=== PATIENT | male | born 1960 | race Two or more races ===

== ENCOUNTER 2023-02-17 09:57 | Emergency (ER) | payer BC, SELFPAY ==
[2023-02-17] VITALS (27 sets, daily range): BP systolic 116–165; BP diastolic 76–105; PULSE 80–95; RESP 12–88; TEMP 36.8; O2SAT 91–99; BMI 30.7
--- NOTE | 2023-02-17 10:07 | ED_ITS ---
HPI - General Adult General Chief complaint: Shortness of Breath/Dyspnea Stated complaint: SYNCOPE Time Seen by Provider: 02/17/23 10:03 Source: patient Mode of arrival: walk-in History of Present Illness HPI narrative: Patient presents to emergency department complaining of dyspnea. Patient has a history of asthma. He was at Dr. Diaz's office and had an outpatient x-ray ordered. The patient went to get the x-ray he became dyspneic and lightheaded and came into the emergency department. states he has been having a nonproductive cough for one week. She tested her for cold with on Thursday and it was negative. The patient denies any fever, chills, or chest pain. He denies any lower extremity edema, or cramping. He has no previous history of thrombotic disease. Denies any sore throat or upper respiratory infection symptoms. He has been taking decongestants. He has used his inhaler at home a couple of times. This is glucose has been normal. Related Data Previous Rx's Medication Instructions Recorded albuterol sulfate 5 mg/mL(0.5 %) 2.5 mg (0.5 mL) inhalation TID 10 02/17/23 solution for nebulization days #15 mL benzonatate 200 mg capsule 200 mg PO TID PRN cough #20 caps 02/17/23 Allergies Allergy/AdvReac Type Severity Reaction Status Date / Time zpack AdvReac Intermediate Uncoded 02/17/23 10:04 Review of Systems ROS Status of ROS 10 or more systems reviewed and unremarkable except as noted in history and below [facility] Social History Smoking status: Current every day smoker Exam Narrative Exam Narrative: Nurses notes and vital signs reviewed and patient is not hypoxic. General: Nontoxic, Well-appearing and in no apparent distress. Skin: Warm, dry, no pallor noted. No Rash Head: Normocephalic, atraumatic. Neck: Supple, non-tender. Eye: Pupils are equal, round and EOMI. No scleral icterus. Ears, Nose, Mouth, and Throat: TM clear, no posterior oropharynx erythema or nasal mucosal hypertrophy, uvula is mid-line Oral mucosa is moist Cardiovascular: Regular Rate and Rhythm without murmur, gallop or rub. Respiratory: No accessory muscle use or respiratory distress. Lungs Bilateral diffuse expiratory wheezes. Chest Wall: no tenderness Back: No midline thoracic or lumbar vertebral tenderness. No CVA tenderness Musculoskeletal: normal ROM, no calf or popliteal tenderness, no lower extremity edema/swelling GI: Abdomen is soft, non-distended. Normal bowel sounds. No masses appreciated. No tenderness to palpation. No rebound, guarding, or rigidity noted. Neurological: A&O x4. No cranial nerve dysfunction observed. No truncal ataxia. Moves all extremities. Sensation intact. Psychiatric: Cooperative and interactive. Normal mood and affect. Constitutional Vital Signs, click to edit/add: Last Vital Signs Temp 98.2 F 02/17/23 10:00 Pulse 90 02/17/23 12:25 Resp 16 02/17/23 12:25 BP 145/88 H 02/17/23 10:15 Pulse Ox 92 L 02/17/23 12:25 O2 Del Method Room Air 02/17/23 12:25 Course Vital Signs Vital signs: Vital Signs Temperature 98.2 F 02/17/23 10:00 Pulse Rate 87 02/17/23 10:00 Respiratory Rate 88 H 02/17/23 10:00 Blood Pressure 165/105 H 02/17/23 10:00 Pulse Oximetry 95 02/17/23 10:00 Temperature 98.2 F 02/17/23 10:00 Pulse Rate 90 02/17/23 12:25 Respiratory Rate 16 02/17/23 12:25 Blood Pressure 145/88 H 02/17/23 10:15 Pulse Oximetry 92 L 02/17/23 12:25 Oxygen Delivery Method Room Air 02/17/23 12:25 Medical Decision Making MDM Narrative Medical decision making narrative: Patient had an IV established. His oxygen saturation is 97 percent on room air. Solu-Medrol 125 mg IV and duoneb was ordered. Symptoms have improved- is still slightly wheezing. Patient was given an albuterol nebulized treatment, and Tessalon Perles after he had a cough spell. Patient states he felt much better. His oxygen saturation is 93 percent on room air. He states he is feeling depressed he's had in a while. He respiratory panel was negative. Chest x-rays unremarkable. Patient was just discharged from Dr. Archuleta's office. He has prescriptions in the pharmacy for prednisone, an antibiotic, albuterol and codeine antitussive. At this time the patient is without objective evidence of an acute process requiring hospitalization or inpatient management. The patient has remained hemodynamically stable. No additional indication for emergent studies at this time. I answered all questions. Discussed discharge instructions including standard anticipatory guidance and what should prompt a return to the emergency department, including if they get worse are not getting better or develops any new or concerning symptoms. I've given them specific time frame in which to follow-up, and who to follow-up with. The patient demonstrates understanding. Patient is nontoxic and stable for discharge with outpatient follow-up. This note was created with the assistance of a speech recognition program. Although the intention is to generate documents that actually reflects the content of the visit, no guarantees can be provided that every mistake has been identified and corrected by editing. Lab Data Lab results reviewed: Yes I reviewed the patient's lab results Labs: Lab Results 02/17/23 02/17/23 Range/Units 10:30 12:00 WBC 10.7 (4.0-11.0) 10^3/uL RBC 5.64 (4.70-6.10) 10^6/uL Hgb 16.2 (14.0-18.0) g/dL Hct 48.3 (42.0-54.0) % MCV 85.6 (80.0-94.0) fL MCH 28.7 (25.9-34.0) pg MCHC 33.5 (29.9-35.2) g/dL RDW 12.7 (11.0-15.0) % Plt Count 218 (150-450) 10^3/uL MPV 10.6 (9.5-13.5) fL Neut % (Auto) 53.8 (43.0-75.0) % Lymph % (Auto) 24.6 (20.5-60.0) % [place] % (Auto) 6.9 (1.7-12.0) % Eos % (Auto) 13.6 H (0.9-7.0) % Baso % (Auto) 0.8 (0.2-2.0) % Neut # (Auto) 5.7 (1.4-6.5) 10^3/uL Lymph # (Auto) 2.6 (1.2-3.8) 10^3/uL [place] # (Auto) 0.7 (0.3-0.8) 10^3/uL Eos # (Auto) 1.5 H (0.0-0.7) 10^3/uL Baso # (Auto) 0.1 (0.0-0.1) 10^3/uL Abs Immat Gran (auto) 0.03 (0.00-0.03) 10^3/uL Imm/Tot Granulo (auto) 0.3 (0.0-0.5) % PT 10.3 (9.0-11.6) sec INR 0.97 APTT 33.3 (22.3-36.2) sec D-Dimer 0.26 (<=0.59) mg/L FEU Sodium 138 (136-145) mmol/L Potassium 4.4 (3.5-5.1) mmol/L Chloride 102 (98-107) mmol/L Carbon Dioxide 25.0 (21.0-32.0) mmol/L Anion Gap 15.4 BUN 20.0 H (7.0-18.0) mg/dL Creatinine 0.97 (0.70-1.30) mg/dL Est GFR ( Amer) >60 (>=60) Est GFR (Non-Af Amer) >60 (>=60) BUN/Creatinine Ratio 20.6 Glucose 155 H (74-106) mg/dL Calcium 9.7 (8.5-10.1) mg/dL Total Bilirubin 0.6 (0.2-1.0) mg/dL AST 18 (15-37) U/L ALT 28 (16-63) U/L Alkaline Phosphatase 85 (46-116) U/L Troponin I High Sens 6.5 (4.0-76.1) pg/mL NT-Pro-B Natriuret Pep <5.0 (<=900.0) pg/mL Total Protein 8.4 H (6.4-8.2) g/dL Albumin 4.2 (3.4-5.0) g/dL Globulin 4.2 g/dL Albumin/Globulin Ratio 1.0 Adenovirus (PCR) Not detected (NOT DETECTE) C. pneumoniae DNA (PCR) Not detected (NOT DETECTE) Coronavirus Type OC43 Not detected (NOT DETECTE) Coronavirus Type HKU1 Not detected (NOT DETECTE) Coronavirus Type 229E Not detected (NOT DETECTE) Coronavirus Type NL63 Not detected (NOT DETECTE) Human Metapneumovir PCR Not detected (NOT DETECTE) M. pneumoniae (PCR) Not detected (NOT DETECTE) Parainfluenza PCR Not detected (NOT DETECTE) Parainfluenza 2 (PCR) Not detected (NOT DETECTE) Parainfluenza 3 (PCR) Not detected (NOT DETECTE) Parainfluenza 4 (PCR) Not detected (NOT DETECTE) RSV (RT-PCR) Not detected (NOT DETECTE) Entero/Rhino (PCR) Not detected (NOT DETECTE) SARS-CoV-2 (PCR) Not detected (NOT DETECTE) Bordetella pertussis (PCR) Not detected (NOT DETECTE) B parapertussis DNA PCR Not detected (NOT DETECTE) Influenza Type A (PCR) Not detected (NOT DETECTE) Influenza Type B (PCR) Not detected (NOT DETECTE) ECG Data Attestation: I personally reviewed and interpreted this ECG as follows: Interpretation: Sinus rhythm of 84 beats per minutes. Normal axis, there are no acute ischemic changes. Discharge Plan Discharge Chief Complaint: Shortness of Breath/Dyspnea Clinical Impression: Asthma with acute exacerbation Patient Disposition: Home, Self-Care Time of Disposition Decision: 13:16 Condition: Good Mode of Transportation: Private Vehicle Prescriptions / Home Meds: New albuterol sulfate 5 mg/mL solution for nebulization 2.5 mg inhalation TID 10 Days Qty: 15 0RF benzonatate 200 mg capsule 200 mg PO TID PRN (Reason: cough) Qty: 20 0RF Instructions: Asthma (ED) Stand Alone Forms: Portal Instructions Referrals: Jason Archuleta DO [Physician] - 1 week PAPA NELSON [Primary Care Provider] - 1 week
--- NOTE | 2023-02-17 10:14 | XR_ITS ---
The [address] [address] Patient Name: NOHEMI FRANCO MRN: [id number] date: 1960 Sex: M Assigned Patient Location: ED.MAIN Current Patient Location: ER Accession/Order Number: [id number] Exam Date: 02/17/2023 11:12 Report Date: 02/17/2023 11:31 At the request of: STEFANIE ROBERSON Procedure: XR chest 1V EXAM: XR chest 1V HISTORY: Dyspnea. COMPARISON: None. TECHNIQUE: AP erect portable chest radiograph performed. FINDINGS: The trachea is normal. The cardiomediastinal silhouette and hilar shadows are normal. The lung osei are clear. There is no pneumothorax. There is no osseous abnormality. XR/XR chest 1V IMPRESSION: Unremarkable AP erect portable chest radiograph. Electronically authenticated by: AGNES CAMARENA Date: 02/17/2023 11:31
--- NOTE | 2023-02-17 10:14 | ECG_ITS ---
The [facility] Test Date: 2023-02-17 Pat Name: NOHEMI FRANCO Department: Room: - Gender: Male 411 Directory Assistance Operator: : 1960 Requested By: [id number] Order Number: [id number] Reading MD: AURORA REBOLLEDO Measurements Intervals [place] Rate: 84 P: 60 [place]: 200 QRS: 71 QRSD: 84 T: 66 QT: 354 QTc: 395 Interpretive Statements 1100 Sinus rhythm 9110 normal ECG No previous ECG available for comparison Electronically Signed On 02-18-2023 6:59:21 EDT by AURORA REBOLLEDO
[2023-02-17] MEDS: IPRATROPIUM/ALBUTEROL SULFATE 3 ML AMPUL.NEB IH (10:34)
[2023-02-17] MEDS: METHYLPREDNISOLONE SOD SUCC PF 125 MG/2 ML VIAL IVP (10:41)
[2023-02-17 10:45] LABS: Basophils Absolute Auto 0.1 10^3/uL (0.0-0.1); Basophils Percent Auto 0.8 % (0.2-2.0); Eosinophils Absolute Auto 1.5 10^3/uL (0.0-0.7); Eosinophils Percent Auto 13.6 % (0.9-7.0); Hematocrit 48.3 % (42.0-54.0); Hemoglobin 16.2 g/dL (14.0-18.0); Immature Granulocytes Abs Auto 0.03 10^3/uL (0.00-0.03); Immature Granulocytes Pct Auto 0.3 % (0.0-0.5); Lymphocytes Absolute Auto 2.6 10^3/uL (1.2-3.8); Lymphocytes Percent Auto 24.6 % (20.5-60.0); Mean Corpuscular HGB Conc 33.5 g/dL (29.9-35.2); Mean Corpuscular Hemoglobin 28.7 pg (25.9-34.0); Mean Corpuscular Volume 85.6 fL (80.0-94.0); Mean Platelet Volume 10.6 fL (9.5-13.5); Monocytes Absolute Auto 0.7 10^3/uL (0.3-0.8); Monocytes Percent Auto 6.9 % (1.7-12.0); Neutrophils Absolute Auto 5.7 10^3/uL (1.4-6.5); Neutrophils Percent Auto 53.8 % (43.0-75.0); Platelet Count 218 10^3/uL (150-450); Red Blood Count 5.64 10^6/uL (4.70-6.10); Red Cell Distribution Width 12.7 % (11.0-15.0); White Blood Count 10.7 10^3/uL (4.0-11.0)
[2023-02-17] MEDS: MAGNESIUM SULFATE IN WATER 50 ML IV (10:46)
[2023-02-17 11:00] LABS: D Dimer 0.26 mg/L FEU (<=0.59); INR 0.97; Partial Thromboplastin Time 33.3 sec (22.3-36.2); Prothrombin Time 10.3 sec (9.0-11.6)
[2023-02-17 11:10] LABS: Alanine Aminotransferase 28 U/L (16-63); Albumin Level 4.2 g/dL (3.4-5.0); Alkaline Phosphatase 85 U/L (46-116); Anion Gap 15.4; Aspartate Amino Transferase 18 U/L (15-37); BUN Creatinine Ratio 20.6; Bilirubin Total 0.6 mg/dL (0.2-1.0); Calcium 9.7 mg/dL (8.5-10.1); Chloride 102 mmol/L (98-107); Estimated GFR (African America >60 (>=60); Estimated GFR (Non-African Ame >60 (>=60); Globulin 4.2 g/dL; Glucose 155 mg/dL (74-106); NT Pro B Type Natriuretic Pept <5.0 pg/mL (<=900.0); Potassium 4.4 mmol/L (3.5-5.1); Sodium 138 mmol/L (136-145); Total Protein 8.4 g/dL (6.4-8.2); Troponin I High Sensitivity 6.5 pg/mL (4.0-76.1)
[2023-02-17 12:10] LABS: Adenovirus NOT DETECTED (NOT DETECTE); Bordetella parapertussis NOT DETECTED (NOT DETECTE); Coronavirus 229E NOT DETECTED (NOT DETECTE); Coronavirus HKU1 NOT DETECTED (NOT DETECTE); Coronavirus NL63 NOT DETECTED (NOT DETECTE); Coronavirus OC43 NOT DETECTED (NOT DETECTE); Human Metapneumovirus NOT DETECTED (NOT DETECTE); Human Rhinovirus/Enterovirus NOT DETECTED (NOT DETECTE); Influenza A NOT DETECTED (NOT DETECTE); Influenza B NOT DETECTED (NOT DETECTE); Mycoplasma pneumoniae NOT DETECTED (NOT DETECTE); Parainfluenza Virus 1 NOT DETECTED (NOT DETECTE); Parainfluenza Virus 2 NOT DETECTED (NOT DETECTE); Parainfluenza Virus 3 NOT DETECTED (NOT DETECTE); Parainfluenza Virus 4 NOT DETECTED (NOT DETECTE); Respiratory Syncytial Virus NOT DETECTED (NOT DETECTE); SARS-CoV-2 NOT DETECTED (NOT DETECTE)
[2023-02-17] MEDS: BENZONATATE 100 MG CAPSULE 200 MG PO (12:18)
[2023-02-17] MEDS: ALBUTEROL SULFATE 2.5 MG/3 ML VIAL NEB IH (12:25)
== END 2023-02-17 14:02 | disposition home or self-care (01) ==
PROVIDERS: Emergency Provider Emergency Medicine; PCP Nurse Practitioner
DX: J45.901 Unspecified asthma with (acute) exacerbation (principal); F17.210 Nicotine dependence, cigarettes, uncomplicated; Z79.899 Other long term (current) drug therapy; Z20.822 Contact with and (suspected) exposure to COVID-19
CPT/HCPCS: 0202U; 36415; 71045; 80053; 83880; 84484; 85025; 85378; 85610; 85730; 87040; 93005; 94640; 96374; 96375; 99285; J2930

== ENCOUNTER 2023-07-22 10:08 | Outpatient (OUT) | payer OTHER, SELFPAY ==
[2023-07-22] MEDS: ALBUTEROL SULFATE 2.5 MG/3 ML VIAL NEB IH (09:38)
--- NOTE | 2023-07-22 09:40 | RT_ITS ---
The [facility] Test Date: 2023-07-22 Pat Name: NOHEMI FRANCO Department: Room: - Gender: Male Test Evaluator: Juan Membreno RRT : 1960 Requested By: [id number] Order Number: [id number] Reading MD: Jason Archuleta Interpretive Statements Spirometry was completed according to ATS criteria. Findings were considered accurate and reproducible. Both pre- and post-bronchodilator values utilized for spirometry. Due to software limitations, no prior studies are currently available for comparison. Spirometry (based on pre-bronchodilator values): -FEV1/FVC: Normal @ 76% -FEV1: Normal @ 122% -FVC: Normal @ 124% -There is no significant bronchodilator response. Flow-volume loop: -Normal shape Impressions: -Normal spirometry. Clinical correlation required. Electronically Signed On 07-22-2023 11:21:07 EST by Jason Archuleta
== END 2023-07-22 10:09 | disposition home or self-care (01) ==
LOC: CARD 10:08
PROVIDERS: PCP Nurse Practitioner
DX: J45.909 Unspecified asthma, uncomplicated (principal)
CPT/HCPCS: 71046; 94060

== ENCOUNTER 2023-10-06 10:12 | Outpatient (OUT) | payer OTHER, SELFPAY ==
--- NOTE | 2023-10-06 10:20 | XR_ITS ---
The [address] [address] Patient Name: NOHEMI FRANCO MRN: [id number] date: 1960 Sex: M Assigned Patient Location: [facility] Current Patient Location: [facility] Accession/Order Number: [id number] Exam Date: 10/06/2023 10:30 Report Date: 10/06/2023 11:15 At the request of: NON-STAFF PHYSICIAN Procedure: XR shoulder RT min 2V PROCEDURE: XR shoulder RT min 2V COMPARISON: None. HISTORY: Arthritis M13.80 FINDINGS: BONES:No acute fracture or dislocation. Mild glenohumeral and acromioclavicular joint osteoarthritis with marginal osteophyte formation SOFT TISSUES:Negative. No visible soft tissue swelling. EFFUSION:None visible. OTHER: Negative. XR/XR shoulder RT min 2V IMPRESSION: Mild osteoarthritis Electronically authenticated by: LEO GE Date: 10/06/2023 11:15
--- OUTSIDE RECORDS SUMMARY | 2023-10-06 10:26 | XMS_ITS | CCD ---
Author Name Unknown Address [address] [facility] [id number] [place] [address] Organization [facility] Care Team Providers Care Senior Systems Architect Name Role Phone CROWLEY, PAPA Primary Care Unavailable KAROL, STEFANIE Admitting Unavailable KAROL, STEFANIE Attending Unavailable KAROL, STEFANIE Consulting Unavailable CROWLEY, PAPA Admitting Unavailable CROWLEY, PAPA Attending Unavailable MISC, DR PARRY Admitting Unavailable CROWLEY, PAPA Primary Care Unavailable MISC, DR PARRY Attending Unavailable MISC, DR PARRY Consulting Unavailable ZIEBER, DR KASSANDRA Rocah Consulting Unavailable CROWLEY, PAPA Primary Care Unavailable SAMSA, RASHAUN Admitting Unavailable SAMSA, RASHAUN Attending Unavailable SAMSA, RASHAUN Consulting Unavailable SAMSA, RASHAUN Admitting Unavailable CROWLEY, PAPA Primary Care Unavailable SAMSA, RASHAUN Attending Unavailable SAMSA, RASHAUN Consulting Unavailable CROWLEY, PAPA Attending Unavailable CROWLEY, PAPA Consulting Unavailable CROWLEY, PAPA Primary Care Unavailable CROWLEY, PAPA Admitting Unavailable LONETREE, DR LEO Rashid Consulting Unavailable CROWLEY, PAPA Primary Care Unavailable CROWLEY, PAPA Admitting Unavailable CROWLEY, PAPA Attending Unavailable CROWLEY, PAPA Consulting Unavailable Crowley CONVEYOR 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, Papa J Primary Care Provid er Allergies Allergy Classification Reported Allergen(s) Allergy Type Date of Onset Reaction(s) Facility (1 source) Corticosteroids Drug allergy (disorder) 1 [facility] (4 sources) Amoxicillin Drug Allergy 1 Rash [facility] (4 sources) Azithromycin Drug Allergy 3 Rash [facility] (4 sources) metFORMIN Drug Allergy 2 [facility] (4 sources) tiotropium Drug Allergy 2 [facility] Medications Current Medications Medication Drug Class(es) Dates Sig (Normalized) Sig (Original) albuterol 0.83 mg/ml inhalation solution (8 sources) beta2-Adrenergic Agonist Start: 04-15-2021 take 2.5 mg by inhalation every six hours as needed for wheezing and dyspnea and wheezing and wheezing albuterol (PROVENTIL,VENTOLIN ) 2.5 mg /3 mL (0.083 %) nebulizer solution Indications: Wheezing without diagnosis of asthma Inhale 3 mL (2.5 mg total) by nebulization every 6 (six) hours as needed for wheezing or shortness of breath. 168 mL 0 04/15/2021 Active Start: 01-10-2021 take 2 puff(s) by in halation every six hours as needed for wheezing albuterol (PROVENTIL HFA;VENTOLIN HFA) 90 mcg/actuation inhaler Indications: Upper respiratory tract infection, unspecified type , Cough due to bronchospasm , Wheezing on inspiration Inhale 2 puffs every 6 (six) hours as needed for wheezing or shortness of breath. 36 g 1 01/10/2021 Active AMBULATORY COMPOUNDED MEDICATION (4 sources) Start: 03-04-2023 AMBULATORY COM POUNDED MEDICATION 0.1 mL by intracavernosal route as needed (no more than 3x weekly). 5 mL 2 03/04/2023 Active aspirin 81 mg delayed release oral tablet (5 sources) Platelet Aggregation Inhibitor, Nonsteroidal Anti-inflammatory Drug Start: 08-31-2023 aspirin 81 mg Indications: Controlled type 2 diabetes mellitus without complication, without long-term current use of insulin ([facility]) , Hyperlipidemia, mixed TAKE 1 TABLET DAILY 90 tablet 3 08/31/2023 Active Start: 09-08-2022 End: 08-31-2023 aspirin 81 mg Indications: C ontrolled type 2 diabetes mellitus without complication, without long-term current use of insulin ([facility]) , Hyperlipidemia, mixed TAKE 1 TABLET DAILY 90 tablet 3 09/08/2022 08/31/2023 Discontinued 2 ml dupilumab 150 mg/ml auto-injector (4 sources) Interleukin-4 Receptor alpha Antagonist DUPIXENT PEN 300 mg/2 mL pen injector SUBQ injection pen as directed Subcutaneous 0 Active fluticasone propionate 0.05 mg/actuat metered dose nasal spray (4 sources) Corticosteroid Start: 2021 take 2 spray(s) nasal route in the morning fluticasone propionate (FLONASE) 50 mcg/actuation nasal spray Indications: Seasonal allergic rhinitis due to other allergic trigger Administer 2 sprays into each nostril in the morning. 16 g 0 12/05/2021 Active 14 actuat fluticasone furoate 0.1 mg/actuat / vilanterol 0.025 mg/actuat dry powder inhaler (4 sources) Corticosteroid, beta2-Adrenergic Agonist Start: 2022 take 1 puff(s) by inhalation in the morning fluticasone furoate-vilanteroL (BREO ELLIPTA) 100-25 mcg/dose blister with device Indications: Eosinophilic asthma Inhale 1 puff in the morning. 28 each 0 04/01/2023 Active insulin glargine-yfgn (SEMGLEE,INSULIN GLARG-YFGN,PEN) 100 unit/mL (3 mL) insulin pen (4 sources) Start: 2022 inject 30 [IU] by subcutaneous injection once daily, then inject 100 [IU] by subcutaneous injection once daily insulin glargine-yfgn (SEMGLEE,INSULIN GLARG-YFGN,PEN) 100 unit/mL (3 mL) insulin pen Indications: Type 2 diabetes mellitus with other specified complication, with long-term current use of insulin ([facility]) INJECT 30 UNITS DAILY UNDER THE SKIN ONCE PER DAY 0 06/17/2023 Active 3 ml insulin lispro 100 unt/ml pen injector (5 sources) Insulin Analog Start: 2022 End: 2023 inject 15 [IU] by subcutaneous injection three times daily at mealtime, then inject 45 [IU] by subcutaneous injection once daily insulin lispro (HumaLOG KwikPen Insulin) 100 unit/mL insulin pen Indications: Type 2 diabetes mellitus with other specified complication, with long-term current use of insulin ([facility]) Inject 15 Units under the skin 3 (three) times a day with meals. Max 45 units per day 45 mL 3 09/04/2023 Active montelukast 10 mg oral tablet (4 sources) Leukotriene Receptor Antagonist Start: 2021 montelukast (SINGULAIR) 10 mg tablet rosuvastatin calcium 40 mg oral tablet (4 sources) HMG-CoA Reductase Inhibitor Start: 2022 rosuvastatin (CRESTOR) 40 mg tablet Indications: Mixed hyperlipidemia TAKE 1 TABLET DAILY 90 tablet 3 04/01/2023 Active sildenafil 50 mg oral tablet (5 sources) Phosphodiesterase 5 Inhibitor Start: 2020 End: 2023 take 1 tablet by mouth once daily as needed sildenafiL (VIAGRA) 50 mg tablet Indications: Erectile dysfunction due to type 2 diabetes mellitus ([facility]) Take 1 tablet (50 mg total) by mouth daily as needed for erectile dysfunction. 10 tablet 2 08/27/2023 Active Problems Active Problems Problem Classification Problem Date Documented Date Episodic/Chronic Asthma (1 source) Moderate persistent asthma, uncomplicated; Translations: [MOD PERSISTENT ASTHMA UNCOMPLICATED] Onset: 06-09-2021 Chronic Diabetes mellitus with complications (14 sources) Type 2 diabetes mellitus with other specified complication; Translations: [Erectile dysfunction due to type 2 diabetes mellitus] Onset: 08-06-2021 Chronic Diabetes mellitus without complication (1 source) Type 2 diabetes mellitus without complication; Translations: [Type 2 diabetes mellitus without complications] 08-31-2023 Chronic Disorders of lipid metabolism (5 sources) Mixed hyperlipidemia; Translations: [Mixed hyperlipidemia] Onset: 09-14-2017 04-12-2019 Chronic Esophageal disorders (4 sources) Gastroesophageal reflux disease without esophagitis; Translations: [Gastro-esophageal reflux disease without esophagitis] Onset: 10-26-2020 10-26-2020 Chronic Other lower respiratory disease (4 sources) Chronic cough; Translations: [CHRONIC COUGH] Onset: 05-31-2021 Episodic Poisoning by other medications and drugs (4 sources) Poisoning by insulin and oral hypoglycemic [antidiabetic] drugs, accidental (unintentional), initial encounter; Translations: [POISON INSULIN ORAL HG RX ACC INIT] Onset: 05-10-2021 Episodic Residual codes; unclassified (4 sources) Obstructive sleep apnea (adult) (pediatric); Translations: [OBSTRUCTIVE SLEEP APNEA] Onset: 12-06-2020 Chronic Residual codes; unclassified (4 sources) Obstructive sleep apnea syndrome; Translations: [Obstructive sleep apnea (adult) (pediatric)] Onset: 05-09-2013 09-25-2020 Chronic Unclassified (3 sources) CONTACT W/AND (SUSP) EXPOS COVID-19; Translations: [CONTACT W/AND (SUSP) EXPOS COVID-19] Onset: 04-20-2021 Past or Other Problems Problem Classification Problem Date Documented Da te Episodic/Chronic Mood disorders (4 sources) Mood disorders Onset: 04-01-2023 04-01-2023 Other lower respiratory disease (4 sources) Shortness of breath; Translations: [SHORTNESS OF BREATH] Onset: 04-25-2021 Episodic Other lower respiratory disease (1 source) Wheezing; Translations: [WHEEZING] Onset: 04-20-2021 Episodic Other upper respiratory disease (4 sources) Acute bronchospasm; Translations: [ACUTE BRONCHOSPASM] Onset: 01-08-2021 Episodic Unclassified (1 source) CONTACT W/AND (SUSP) EXPOS COVID-19; Translations: [CONTACT W/AND (SUSP) EXPOS COVID-19] Onset: 04-16-2021 Unclassified (4 sources) Onset: 04-01-2023 04-01-2023 Results Test Name Value Interpretation Reference Range Facility GLUTAMIN ACID DECARBOXYLASE (ROMAN)on 08-08-2021 ROMAN-65 <5.0 Normal 0.0-5.0 [facility] Comment on above: Performed By: #### G AD #### [facility] [address] [place] [address] Dr. Forrest Sommers C-PEPTIDE, SERUMon 2 C-Peptide, Serum 3.6 ng/mL Normal 1.1-4.4 [facility] Comment on above: Result Comment: C-Pe ptide reference interval is for fasting patients. Performed By: #### P OCGLUC #### [facility] [address] [address] [address] Forrest Sommers LIPID PROFILEon 08-06-2021 CHOL-HDL RATIO NORM SEE BELOW Normal [facility] Comment on above: Result Comment: 3.3 - 4.4 LOW RISK 4.4 - 7.1 AVERAGE RISK 7.1 - 11.0 MODERATE RISK >11.0 HIGH RISK Performed By: #### L IPID, BMP #### [facility] [address] [address] [address] Forrest Sommers Cholesterol [Mass/Vol] 133 mg/dL Normal <=200 Th [facility] Comment on above: Performed By: #### L IPID, BMP #### [facility] [address] [address] [address] Forrest Sommers Cholesterol in HDL [Mass/Vol] 33 mg/dL Normal [facility] Comment on above: Performed By: #### L IPID, BMP #### [facility] [address] [address] [address] Forrest Sommers Cholesterol in LDL [Mass/Vol] 44.2 mg/dL Normal [facility] Comment on above: Performed By: #### L IPID, BMP #### [facility] [address] [address] [address] Forrest Sommers Cholesterol.total/Choles terol in HDL [Mass ratio] 4.0 {ratio} Normal [facility] Comment on above: Performed By: #### L IPID, BMP #### [facility] [address] [place] [address] Dr. Forrest Sommers HDL NORMAL > or = 60 mg/dl - LOW CARDIOVASCULAR RISK <40 mg/dl - HIGH CARDIOVASCULAR RISK Normal [facility] Comment on above: Performed By: #### L IPID, BMP #### [facility] [address] [place] [address] Dr. Forrest Sommers LDL CALC NORMAL SEE BELOW Normal [facility] Comment on above: Result Comment: <100 mg/dl OPTIMAL 100 - 129 mg/dl NEAR OR ABOVE OPTIMAL 130 - 159 mg/dl BORDERLINE HIGH 160 - 189 mg/dl HIGH >190 mg/dl VERY HIGH Performed By: #### L IPID, BMP #### [facility] [address] [place] [address] Dr. Forrest Sommers Triglyceride [Mass/Vol] 279 mg/dL Critically high <=150 [facility] Comment on above: Performed By: #### L IPID, BMP #### [facility] [address] [place] [address] Dr. Forrest Sommers VLDL CALC 55.8 mg/dL Normal [facility] Comment on above: Performed By: #### L IPID, BMP #### [facility] [address] [address] [address] Forrest Sommers PROF CHEM 8 (BAS METB)on Anion gap [Moles/Vol] 12.9 mmol/L Normal [facility] Comment on above: Performed By: #### L IPID, BMP #### [facility] [address] [address] [address] Forrest Sommers Calcium [Mass/Vol] 9.1 mg/dL Normal 8.4-10.2 [facility] Comment on above: Performed By: #### L IPID, BMP #### [facility] [address] [address] [address] Forrest Sommers Chloride [Moles/Vol] 100 mmol/L Normal 98-107 [facility] Comment on above: Performed By: #### L IPID, BMP #### [facility] [address] [place] [address] Dr. Forrest Sommers CO2 [Moles/Vol] 27.4 mmol/L Normal 22.0-30.0 [facility] Comment on above: Performed By: #### L IPID, BMP #### [facility] [address] [place] [address] Dr. Forrest Sommers Creatinine [Mass/Vol] 1.13 mg/dL Normal 0.66-1.25 [facility] Comment on above: Performed By: #### L IPID, BMP #### [facility] [address] [place] [address] Dr. Forrest Sommers EGFR-AF BARBADIAN >60 Normal >=60 [facility] Comment on above: Performed By: #### L IPID, BMP #### [facility] [address] [place] [address] Dr. Forrest Sommers EGFR-NON AF BARBADIAN >60 Normal >=60 [facility] Comment on above: Performed By: #### L IPID, BMP #### [facility] [address] [place] [address] Dr. Forrest Sommers Glucose [Mass/Vol] 153 mg/dL Critically high 74-106 [facility] Comment on above: Performed By: #### L IPID, BMP #### [facility] [address] [place] [address] Dr. Forrest Sommers Potassium [Moles/Vol] 4.3 mmol/L Normal 3.4-5.0 [facility] Comment on above: Performed By: #### L IPID, BMP #### [facility] [address] [place] [address] Dr. Forrest Sommers Sodium [Moles/Vol] 136 mmol/L Critically low 137-145 Th [facility] Comment on above: Performed By: #### L IPID, BMP #### [facility] [address] [place] [address] Dr. Forrest Sommers Urea nitrogen [Mass/Vol] 21.0 mg/dL Critically high 9.0-20 .0 [facility] Comment on above: Performed By: #### L IPID, BMP #### [facility] [address] [place] [address] Dr. Forrest Sommers Urea nitrogen/Creatinine [Mass ratio] 18.6 mg/mg Normal [facility] Comment on above: Performed By: #### L IPID, BMP #### [facility] [address] [place] [address] Dr. Forrest Sommers ASPERGILLUS AB, QUANTITATIVE DIDon 06-04-2021 Aspergillus flavus Negative Normal Neg:<1:1 [facility] Comment on above: Performed By: #### A SPDID #### [facility] [address] [place] [address] Dr. Forrest Sommers Aspergillus fumigatus Negative Normal Neg:<1:1 [facility] Comment on above: Performed By: #### A SPDID #### [facility] [address] [place] [address] Dr. Forrest Sommers Aspergillus niger Negative Normal Neg:<1:1 [facility] Comment on above: Performed By: #### A SPDID #### [facility] [address] [place] [address] Dr. Forrest Sommers IMMUNOGLOBULIN E, TOTALon Immunoglobulin E, Total 1164 IU/mL Critically high 6-495 [facility] Comment on above: Performed By: #### P OCGLUC #### [facility] [address] [address] [address] Forrest Sommers ANTI NEUTROPHIL CYTOPLASMIC AB (ANCA) PRon 06-03-2021 Antimyeloperoxidase (MPO) Abs <9.0 Normal 0.0-9.0 [facility] Comment on above: Result Comment: Perf ormed at: BN Performed By: #### P OCGLUC #### [facility] [address] [address] [address] Forrest Sommers Antiproteinase 3 (CO-3) Abs 4.2 U/mL Critically high 0.0-3.5 [facility] Comment on above: Result Comment: Perf ormed at: BN Performed By: #### P OCGLUC #### [facility] [address] [place] [address] Dr. Forrest Sommers Atypical pANCA <1:20 Normal Neg:<1:20 [facility] Comment on above: Result Comment: The atypical pANCA pattern has been observed in a significant percentage of patients with ulcerative colitis, primary sclerosing cholangitis and autoimmune hepatitis. Performed at: CB Performed By: #### P OCGLUC #### [facility] [address] [place] [address] Dr. Forrest Sommers Cytoplasmic (C-ANCA) <1:20 Normal Neg:<1:20 [facility] Comment on above: Result Comment: Perf ormed at: CB Performed By: #### P OCGLUC #### [facility] [address] [place] [address] Dr. Forrest Sommers Perinuclear (P-ANCA) <1:20 Normal Neg:<1:20 [facility] Comment on above: Result Comment: The presence of positive fluorescence exhibiting P-ANCA or C-ANCA patterns alone is not specific for the diagnosis of Nkechi's Granulomatosis (WG) or microscopic polyangiitis. Decisions about treatment should not be based solely on ANCA IFA results. The International ANCA Group Consensus recommends follow up testing of positive sera with both CO-3 and MPO-ANCA enzyme immunoassays. As many as 5% serum samples are positive only by EIA. Ref. AM J Clin Pathol 1999;111:507-513. Performed at: CB Performed By: #### P OCGLUC #### [facility] [address] [address] [address] Forrest Sommers CBC AUTO DIFFon 05-31-2021 BASO # 0.1 103/ul Normal 0.0-0.1 [facility] Comment on above: Performed By: #### P OCGLUC #### [facility] [address] [address] [address] Forrest Sommers Basophils/100 WBC (Bld) 0.7 % Normal 0.2-2.0 [facility] Comment on above: Performed By: #### P OCGLUC #### [facility] [address] [address] [address] Forrest Sommers EO # 0.3 103/ul Normal 0.0-0.7 [facility] Comment on above: Performed By: #### P OCGLUC #### [facility] [address] [place] [address] Dr. Forrest Sommers Eosinophils/100 WBC (Bld) 3.9 % Normal 0.9-7.0 [facility] Comment on above: Performed By: #### P OCGLUC #### [facility] [address] [address] [address] Forrest Sommers Erythrocyte distribution width (RBC) [Ratio] 12.5 % Normal 11.0-15.0 [facility] Comment on above: Performed By: #### P OCGLUC #### [facility] [address] [address] [address] Forrest Sommers Hematocrit (Bld) [Volume fraction] 41.1 % Critically low 42.0-54.0 [facility] Comment on above: Performed By: #### P OCGLUC #### [facility] [address] [address] [address] Forrest Sommers Hemoglobin (Bld) [Mass/Vol] 13.4 g/dL Critically low 14.0-18.0 [facility] Comment on above: Performed By: #### P OCGLUC #### [facility] [address] [address] [address] Forrest Sommers IG # 0.02 10e3/ul Normal 0.00-0.03 [facility] Comment on above: Performed By: #### P OCGLUC #### [facility] [address] [address] [address] Forrest Sommers IG % 0.3 % Normal 0.0-0.5 [facility] Comment on above: Performed By: #### P OCGLUC #### [facility] [address] [address] [address] Forrest Sommers LYMPH # 2.7 103/ul Normal 1.2-3.8 [facility] Comment on above: Performed By: #### P OCGLUC #### [facility] [address] [address] [address] Forrest Sommers Lymphocytes/100 WBC (Bld) 37.0 % Normal 20.5-60.0 [facility] Comment on above: Performed By: #### P OCGLUC #### [facility] [address] [place] [address] Dr. Forrest Sommers MANUAL DIFF REQ NO Normal [facility] Comment on above: Performed By: #### P OCGLUC #### [facility] [address] [address] [address] Forrest Sommers MCH (RBC) [Entitic mass] 28.2 pg Normal 25.9-34.0 [facility] Comment on above: Performed By: #### P OCGLUC #### [facility] [address] [address] [address] Forrest Sommers MCHC (RBC) [Mass/Vol] 32.6 g/dL Normal 29.9-35.2 [facility] Comment on above: Performed By: #### P OCGLUC #### [facility] [address] [address] [address] Forrest Sommers MCV (RBC) [Entitic vol] 86.3 fL Normal 80.0-94.0 [facility] Comment on above: Performed By: #### P OCGLUC #### [facility] [address] [place] [address] Dr. Forrest Sommers MONO # 0.6 103/ul Normal 0.3-0.8 [facility] Comment on above: Performed By: #### P OCGLUC #### [facility] [address] [address] [address] Forrest Sommers Monocytes/100 WBC (Bld) 8.1 % Normal 1.7-12.0 [facility] Comment on above: Performed By: #### P OCGLUC #### [facility] [address] [address] [address] Forrest Sommers NEUT # 3.6 103/ul Normal 1.4-6.5 [facility] Comment on above: Performed By: #### P OCGLUC #### [facility] [address] [address] [address] Forrest Sommers Neutrophils/100 WBC (Bld) 50.0 % Normal 43.0-75.0 [facility] Comment on above: Performed By: #### P OCGLUC #### [facility] [address] [place] [address] Dr. Forrest Sommers Platelet mean volume (Bld) [Entitic vol] 10.5 fL Normal 9.5-13.5 [facility] Comment on above: Performed By: #### P OCGLUC #### [facility] [address] [place] [address] Dr. Forrest Sommers PLT 206 103/ul Normal 150-450 [facility] Comment on above: Performed By: #### P OCGLUC #### [facility] [address] [address] [address] Forerst Sommers RBC 4.76 106/ul Normal 4.70-6.10 [facility] Comment on above: Performed By: #### P OCGLUC #### [facility] [address] [address] [address] Forrest Sommers WBC 7.3 103/ul Normal 4.0-11.0 [facility] Comment on above: Performed By: #### P OCGLUC #### [facility] [address] [place] [address] CHEST HI RESOLUTIONon CT CHEST HI RESOLUTION EXAMINATION: CT CHEST HI RESOLUTION HISTORY: Chronic cough COMPARISON: No relevant comparison available. TECHNIQUE: Axial images were obtained at 10 mm intervals during inspiration and expiration in the supine and prone positions. No IV contrast given. Dose reduction techniques were achieved by using automated exposure control and/or adjustment of mA and/or kV according to patient size and/or use of iterative reconstruction technique. FINDINGS: LUNGS: No visible pulmonary disease. PLEURA: No mass, effusion, or pneumothorax. SCHUYLER: No mass or adenopathy. MEDIASTINUM: No mass or adenopathy. CHEST WALL: No mass or axillary adenopathy LIMITED ABDOMEN: Several large stones within the noninflamed gallbladder. Limited images of the upper abdomen. OTHER: Negative. IMPRESSION: 1. No pulmonary infiltrates or significant chronic interstitial changes. 2. Cholelithiasis. Electronically authenticated by: KASSANDRA JAIN Date: 2021-05-31 13:14 Normal [facility] POINT OF CARE GLUCOSEon 10-0 Glucose [Mass/Vol] 179 mg/dL Critically high 74-106 [facility] Comment on above: Performed By: #### P OCGLUC #### [facility] [address] [address] [address] Forrest Sommers Glucose [Mass/Vol] 201 mg/dL Critically high [facility]106 [facility] Comment on above: Performed By: #### P OCGLUC #### [facility] [address] [address] [address] Forrest Sommers Glucose [Mass/Vol] 193 mg/dL Critically high -106 [facility] Comment on above: Performed By: #### P OCGLUC #### [facility] [address] [address] [address] Forrest Sommers HEMOGLOBINon 04-25-2021 Hemoglobin (Bld) [Mass/Vol] 14.2 g/dL Normal 14.0-18.0 [facility] Comment on above: Performed By: #### H GB #### [facility] [address] [place] [address] Dr. Forrest Sommers Covid-19 PCR (CVDTB)on 04-03 SARS-CoV-2 (COVID-19) RNA DANIEL+probe Ql (Unsp spec) Not detected Normal NOT DETECTED [facility] Comment on above: Result Comment: This test is not yet approved or cleared by the [place] FDA. When there are no FDA-approved or cleared tests available, and other criteria are met, FDA can make tests available under an emergency access mechanism called an Emergency Use Authorization (EUA). The EUA for this test is supported by the [employer] Operator of Health and Human Service's (HHS's) declaration that circumstances exist to justify the emergency use of in vitro diagnostics for the detection and/or diagnosis of the virus that causes COVID-19. This EUA will remain in effect (meaning this test can be used) for the duration of the COVID-19 declaration justifying emergency of IVDs, unless it is terminated or revoked by FDA (after which the test may no longer be used). When diagnostic testing is negative, the possibility of a false negative should be considered in the context of a patient's recent exposures and the presence of clinical signs and symptoms consistent with SARS-CoV-2. Performed By: #### C JOLLY, ADDISONS #### [facility] [address] [place] [address] Dr. Forrest Sommers SYMPTOMATIC COVID-19 ANTIGEN on 04-16-2021 EUA Statement SEE BELOW Normal [facility] Comment on above: Result Comment: This test has not been FDA cleared or approved, but has been authorized by the FDA under an Emergency Use Authorization (EUA) for use by authorized laboratories certified under CLIA that meet the requirements to perform moderate or high complexity testing. This test has been authorized only for the detection of proteins from SARS-CoV-2, not for any other viruses or pathogens. The emergency use of this test is authorized for the duration of the declaration that circumstances exist justifying the authorization of emergency use of in vitro diagnostic tests for detection and/or diagnosis of Covid-19 under section 564(b)(1) of the Act, 21 U.S.C. 360bbb-3(b)(1), unless the declaration is terminated or authorization is revoked sooner. Performed By: #### C VDTBGume, CVDAGS #### [facility] [address] [address] [address] Forrest Sommers SARS-CoV-2 (COVID-19) RNA DANIEL+probe Ql (Unsp spec) Negative Normal NEGATIVE [facility] Comment on above: Result Comment: CONF IRMATION BY PCR PENDING PER CDC GUIDELINES/ SYMPTOMATIC PATIENT. Performed By: #### C VDTB, CVDAGS #### [facility] [address] [address] [address] Forrest Sommers XR CHEST 2 Von 01-08-2021 XR CHEST 2 V EXAMINATION: XR CHEST 2 V HISTORY: Acute upper respiratory infection COMPARISON: No relevant comparison available. TECHNIQUE: PA and lateral FINDINGS: LUNGS: No significant pulmonary parenchymal abnormalities. VASCULATURE: No increased pulmonary vasculature. PLEURA: No pneumothorax, effusion, or pleural thickening. CARDIAC: No cardiomegaly or cardiac silhouette abnormality. MEDIASTINUM: No visible mass or adenopathy. BONES: No fracture or visible bone lesion. OTHER: Negative. IMPRESSION: No acute disease. Electronically authenticated by: LEO GE Date: 2021-01-08 15:30 Normal [facility] Encounters Encounter Date Encounter Type Care Provider Facility Start: 09-04-2023 Refill Prisca Bauman Work Phone: [facility] Comment on above: Type 2 diabetes spencer itus with other specified complication, with long-term current use of insulin ([facility]) Start: 08-31-2023 Refill Papa acevedo APRN-SHEARING SHED WORKER Work Phone: [facility] Comment on above: Controlled type 2 di abetes mellitus without complication, without long-term current use of insulin ([facility]); Hyperlipidemia, mixed Start: 08-26-2023 Telephone encounter Deisy Mustafa MA [facility] Start: 08-20-2023 Telephone encounter Abigail Abel CMA [facility] Start: 08-06-2021 End: 08-07-[address] DOCTOR RODRÍGUEZ Facility:[facility] Start: 05-31-2021 End: 06-01-[address] KASSANDRA JAIN Facility:[facility] Start: 05-10-2021 End: 05-10-2021 ambulatory PAPA CROWLEY Facility:[facility] Start: 04-25-2021 End: 04-26-2021 ambulatory RASHAUN TO Facility:[facility] Start: 04-16-2021 End: 04-16-2021 ambulatory PAPA CROWLEY Facility:[facility] Start: 01-08-2021 End: 01-09-[address] LEO GE Facility:[facility] Start: 12-06-2020 End: 12-07-2020 ambulatory PAPA CRWOLEY Facility:[facility] Start: 04-25-2020 Patient encounter procedure Abigail Abel OPERATIONAL ASSISTANT [facility] Procedures Date Procedure Procedure Detail Performing Clinician Start: 04-01-2023 Adult depression scr eening assessment Abigail Abel [facility] Start: 09-30-2021 Diabetic retinal eye exam Abigail Abel OPERATIONAL ASSISTANT Start: 10-04-2020 Microalbumin [Mass/v olume] in Urine by Test strip Abigail Abel [facility] Start: 06-12-2017 Colonoscopy Abigail laws [facility] Plan of Treatment Date Care Activity Detail Author Start: 06-12-2027 Screening for malignant neoplasm of colon Colonoscopy [facility] Start: 06-17-2024 Adult BMI Screening Adult BMI Screening [facility] Start: 06-17-2024 Diabetic foot examination Diabetic Foot Exam [facility] Start: 06-17-2024 Tobacco Screening Tobacco Screening [facility] Start: 04-27-2024 End: 04-27-2024 Patient encounter procedure 04/27/2024 9:15 AM EDT Office Visit [facility] [address] [place] [phone] Mejia Gallegos MD [address] [place] [address] [facility] Start: 04-01-2024 Adult BMI Follow Up Plan Adult BMI Follow Up Plan [facility] Start: 04-01-2024 [facility] Start: 02-02-2024 DTaP,Tdap and Td Vaccines (3 - Td or Tdap) DTaP,Tdap and Td Vaccines (3 - Td or Tdap) [facility] Start: 12-17-2023 End: 12-17-2023 Patient encounter procedure 12/17/2023 10:30 AM EDT Office Visit [facility] [address] [place] [address] Prisca Dave MD [address] [place] [address] [facility] Start: 10-12-2023 End: 10-12-2023 Patient encounter procedure 10/12/2023 9:45 AM EDT [facility] [address] [place] [id number] Papa Crowley, CONVEYOR 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 [address] [place] [address] [facility] Start: 04-03-2023 COVID-19 Vaccine ( season) COVID-19 Vaccine ( season) [facility] Start: 04-03-2023 Influenza vaccination Influenza Vaccine [facility] Start: 09-30-2022 Glaucoma screening Diabetic Ophthalmology Exam [facility] Start: 10-04-2021 Urine screening for protein Urine Microalbumin [facility] Immunizations Immunization Date Immunization Notes Care Provider Fa cility 11-01-2020 COVID-19, mRNA, LNP- S, PF, 100mcg/0.5mL Dose Abigail [facility] 10-04-2020 COVID-19, mRNA, LNP- S, PF, 100mcg/0.5mL Dose Abigail [facility] 12-30-2018 zoster vaccine recombinant Abigail [facility] 10-21-2018 zoster vaccine recombinant Abigail [facility] 02-01-2014 tetanus toxoid, redu jass diphtheria toxoid, and acellular pertussis vaccine, adsorbed Abigail [facility] 09-04-2012 tetanus and diphther ia toxoids, adsorbed, preservative free, for adult use (5 Lf of tetanus toxoid and 2 Lf of diphtheria toxoid) Abigail [facility] Payers Date Payer Category Payer Unknown JULIETTE ROSENBAUM [employer] (PPO) [id number] 2016-Present [phone] [address] [place] [address] [id number] 1960 Unknown [id number] 1960 Unknown [id number] 1960 Unknown [id number] 1960 Unknown [id number] 1960 Unknown [id number] 1960 Unknown [id number] 1960 Unknown [id number] 1959 Unknown [id number] Social History Date Type Detail Facility Start: 06-17-2023 [facility] History of tobacco use Current smoker [facility] History of tobacco use Cigarette Smoker P [facility] Start: 06-17-2023 Tobacco use and exposure Smokeless tobacco non-user [facility] Start: 06-17-2023 Alcohol intake Ex-drinker (finding) [facility] Start: 09-13-2020 End: 06-17-2023 History of Social function [facility] Start: 09-13-2020 End: 06-17-2023 Tobacco use panel [facility] Adolescent depressio n screening assessment 0 [facility] Start: 04-17-2017 Alcohol Comment social [facility] Start: 1960 Sex Assigned At Not on file P [facility] Medical Equipment Procedure Code Equipment Code Equipment Origin al Text Equipment Identifier Dates USE DIRECTED UNDER THE SKIN FOUR TIMES A DAY [id number] Start: 02-13-2023 Clinical Notes 08-20-2023 to 09-04-2023 Telephone Encounter - Sobeida Smalls - 09/04/2023 9:37 AM ESTTelephone Encounter - Sobeida Smalls - 09/04/2023 9:37 AM ESTTelephone Encounter - Deisy Osorio CMA - 08/26/2023 3:17 PM EST Note Date & Type Note Facility 09-04-2023 Miscellaneous Notes Formattin g of this note might be different from the original. Ok to sign and send documented in this encounter [facility] 09-04-2023 Telephone encount er Note Ok to sign and send [facility] 08-26-2023 Miscellaneous Notes Formattin g of this note might be different from the original. Patient called and stated he would like to have some viagra instead of the injections he has been getting with specialist. Can you call something in? Sent to [facility] documented in this encounter [facility] 08-26-2023 Telephone encount er Note Patient called and stated he would like to have some viagra instead of the injections he has been getting with specialist. Can you call something in? [facility] 08-26-2023 Telephone encount er Note [facility]2023 Miscellaneous Notes Formattin g of this note might be different from the original. Pt would like refill on viagra. [facility] [place] Gallegos noted he was using penile injection therapy at his last visit on 04/29/23. We did not prescribe Viagra that I could see. I do not think it is recommended to use Viagra with penile injection therapy. He states he does not use it (penile injection) much, the expiration date does not last very long and is not getting great results. He states he would never use them both. If filing viagra and you need me to give him new directtion--like if he uses injection he needs to wait a few days in between??? We have not prescribed this for him in the past. It was given by Papa Crowley CNP. He can make an appointment to discuss it or have her send in the prescription. Patient called back and was informed that PCP prescribed that medication so he was going to check with her. documented in this encounter [facility]20[facility]2023 Telephone encount er Note Pt would like refill on viagra. [facility] 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 We did not prescribe Viagra that I could see. I do not think it is recommended to use Viagra with penile injection therapy. [facility] Work Phone: 08-20-2023 Telephone encount er Note He states he does not use it (penile injection) much, the expiration date does not last very long and is not getting great results. He states he would never use them both. If filing viagra and you need me to give him new directtion--like if he uses injection he needs to wait a few days in between??? [facility] 08-20-2023 Telephone encount er Note We have not prescribed this for him in the past. It was given by Papa Crowley CNP. He can make an appointment to discuss it or have her send in the prescription. [facility] 08-20-2023 Telephone encount er Note Patient called back and was informed that PCP prescribed that medication so he was going to check with her. [facility] Evaluation note Diagnosis Erectile dysfunction due to type 2 diabetes mellitus ([facility]) [facility] encounter [facility] Diagnosis Controlled type 2 diabetes mellitus without complication, without long-term current use of insulin ([facility]) Hyperlipidemia, mixed Mixed hyperlipidemia [facility]* Diagnosis Type 2 diabetes mellitus with other specified complication, with long-term current use of insulin ([facility]) [facility] filed[facility]ed in this encounter [facility] filedocumented in this encounter [facility]ructionsNot on filedocumented in this encounter [facility] Summary Purpose Family History No Family History Records Found Advance Directives No Advanced Directives Records Found Additional Source Comments (unrecognized sect ion and content) No Status Records Found INFORMATION SOURCE (unrecogn ized section and content) DATE CREATED AUTHOR 08/11/2021 [facility] Teams (unrecognized sec tion and content) Senior Systems Architect Relationship Specialty Start Date End Date Papa Crowley [facility] [address] [place] [phone] PCP - General Family Medicine 12/07/18 Senior Systems Architect Relationship Specialty Start Date End Date Papa Crowley [facility] [address] [place] [address] PCP - General Family Medicine 12/07/18 Senior Systems Architect Relationship Specialty Start Date End Date Papa Crowley [facility] [address] [place] [address] PCP - General Family Medicine 12/07/18 Reason for Visit (unrecogniz ed section and content) Reason Comments Med Refill Reason Onset Date Comments Med Refill 09/04/2023 FOR RECORDS PERTAINING TO PATIENTS WHO ARE OR HAVE BEEN ENROLLED IN A CHEMICAL DEPENDENCY/SUBSTANCEABUSE PROGRAM, SOME INFORMATION MAY BE OMITTED. This clinical summary was aggregated from multiple sources. Caution should be exercised in using it in the provision of clinical care. This summary normalizes information from multiple sources, and as a consequence, information in this document may materially change the coding, format and clinical context of patient data. In addition, data may be omitted in some cases. CLINICAL DECISIONS SHOULD BE BASED ON THE PRIMARY CLINICAL RECORDS. [facility] [employer] [facility]. provides no warranty or guarantee of the accuracy or completeness of information in this document.
== END 2023-10-06 10:13 | disposition home or self-care (01) ==
LOC: RAD 10:14
PROVIDERS: PCP Nurse Practitioner
DX: M13.80 Other specified arthritis, unspecified site (principal)
CPT/HCPCS: 73030